=== PATIENT | male | born 1965 | race Caucasian/White ===

== ENCOUNTER 2024-07-22 07:03 | Day surgery (SDC) | payer OTHER, SELFPAY ==
[2024-07-22] VITALS (8 sets, daily range): BP systolic 118–155; BP diastolic 65–79; PULSE 67–75; RESP 18; TEMP 36.4–37.6; O2SAT 87–95; BMI 40.3
--- NOTE | 2024-07-22 | GASB_PTH ---
PATIENT: PAULETTE GALLO LOC: [facility] U#:[id number] AGE/SX: 59/M ROOM: RE07/22/[address]: Dr. Masha Morse MD : 1965 BED: DIS: 07/22/2024 SPEC #: [id number] RECD: 07/22/24 13:30 STATUS: BEN NANCY #: [id number] KEELY: 07/22/24 00:[address]: Masha Morse DEPT: SURGICAL PATHOLOGY RECD BY: Tariq Baig ENTERED: 07/23/24 09:37 SP TYPE: Gastric Bx OTHR DR: [facility] Tissues: A - Gastric mucous membrane B - Gastric mucous membrane C - Descending colon D - Sigmoid colon biopsy E - Sigmoid colon biopsy Procedures: Surgery Specimen Level IV HEADER OPERATION: Colonoscopy with biopsy and polypectomy and ink marking PRE-OP DIAGNOSIS: Tubuovillous adenoma of colon, acid reflux, family history of colon cancer in father TISSUE SUBMITTED: A- Gastric body biopsy abnormal mucosa, B- Hepatic flexure polyp, C- Descending colon polyp biopsy, D- Sigmoid polyps x2, E- Sigmoid polyp top 35cm polyp MICROSCOPIC DIAGNOSIS A. Gastric body, biopsy: Mild chronic gastritis. See comment. B. Colonic polyp at hepatic flexure, biopsy: Hyperplastic polyp. C. Descending colon polyp, biopsy: Hyperplastic polyp. D. Sigmoid polyps, biopsy: Fragments of tubular adenoma. E. Sigmoid polyp at 35.0cm, biopsy: Micro adenocarcinoma associated with tubular adenoma. See comment. 07/24/2024 COMMENT A. The results of immunohistochemistry for Helicobacter pylori will be reported separately ([id number]). E. The focus of adenocarcinoma measures 4.0mm in greatest dimension and is submucosal in location. Immunohistochemistry ([id number]) supports the above diagnosis. Clinical correlation is suggested. Case has been reviewed in consultation with Dr. Sterling who concurs with the above diagnosis. IDC:CODY MICROSCOPIC DESCRIPTION Slides are reviewed. GROSS DESCRIPTION A. Received in fixative is one container labeled with the patient's name and designated Gastric body. The specimen consists of one irregular fragment of light wynn soft tissue that measures 0.5 x 0.5 x 0.1 cm. The specimen is totally submitted in one cassette. B. Received in fixative is one container labeled with the patient's name and designated Hepatic flexure polyp. The specimen consists of multiple irregular fragments of light wynn soft tissue that in aggregate measure 0.3 x 0.2 x 0.1 cm. The specimen is totally submitted in one cassette. C. Received in fixative is one container labeled with the patient's name and designated Descending colon polyp. The specimen consists of one irregular fragment of light wynn soft tissue that measures 0.6 x 0.5 x 0.2 cm. The specimen is totally submitted in one cassette. D. Received in fixative is one container labeled with the patient's name and designated Sigmoid polyps x2. The specimen consists of multiple irregular fragments of light wynn soft tissue that in aggregate measure 2.0 x 1.0 x 0.3 cm. The specimen is totally submitted in one cassette. E. Received in fixative is one container labeled with the patient's name and designated Sigmoid polyp. The specimen consists of multiple irregular fragments of light wynn soft tissue that range in size from 0.2 to 1.5cm. The largest fragment is sectioned and totally submitted along with the smaller fragments in one cassette. 07/23/2024 TC:0 [facility]:[id number] ADDENDUM ADDENDUM 07/25/2024 14:31 ADDENDUM 07/25/2024 14:31 ADDENDUM 07/25/2024 14:31 ADDENDUM 07/25/2024 14:31 ADDENDUM 07/25/2024 14:[address] Morse at 1:25pm on 07/24/2024.
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
[2024-07-22] MEDS: Lactated Ringers 1,000 ML 15 ML IV (07:34)
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
--- NOTE | 2024-07-22 08:30 | IMM_PTH ---
PATIENT: PAULETTE GALLO LOC: [facility] U#:[id number] AGE/SX: 59/M ROOM: RE07/22/[address]: Dr. Masha Morse MD : 1965 BED: DIS: 07/22/2024 SPEC #: [id number] RECD: 07/23/24 11:26 STATUS: BEN REKate #: [id number] KEELY: 07/22/24 08:[address]: Masha Morse DEPT: IMMUNOHISTOCHEMISTRY RECD BY: Charles Parra ENTERED: 07/23/24 11:26 SP TYPE: IMMUNO OTHR DR: [facility] Tissues: A - Gastric mucous membrane E - Sigmoid colon biopsy Procedures: H Pylori (initial) SMA (add) CD31 (add) DESMIN (add) SMM (add) FACTOR VIII (add) PHYSICIAN & INSTITUTION [place] [address] SPECIMEN INFORMATION: Tissue Source: A- Gastric body biopsy, E- Sigmoid polyp Clinical Info: Tubulovillous adenoma of colon, family history of colon cancer in father Specimen Number: [id number] Jeet Lindo CPT code: 49702g7,68088i66 METHODOLOGY: Deparaffinized sections of prefer/formalin-fixed tissue or PAP/DQ stained slides are incubated with monoclonal/polyclonal antibodies/oligonucleotide probes. Localization is made via biotin free immunoperoxidase method. Appropriate controls are performed and reacted as expected. Results on target cell population are indicated in the following table: RESULTS: ANTIBODY / CLONE RESULT Block A H Pylori (polyclonal) negative Block E Her-2neu (CB11) negative MOC-31 (4561) positive MLH-1 (M1) positive MSH2 (25D12) positive MSH6 (44) positive PMS2 (YBR0646) positive Ki-67 (30-9) positive, 40% P53 (DO-7) positive, indeterminate pattern Actin (1A4) positive, background tissue Myosin (simms1) positive, background tissue Desmin (CE-R-11) positive, background tissue CD31 (REJI/70A) negative Factor VIII (R Ag) negative These tests were developed and their performance characteristics determined by [facility]. They may not have been cleared or approved by the U.S. Food and Drug Administration. The FDA has determined that such clearance or approval is not necessary. The above immunohistochemical/dualISH markers are ordered and reviewed by the Pathologist. INTERPRETATION: A. Gastric body, biopsy: Negative for Helicobacter pylori organisms. E. Sigmoid colon polyp, biopsy: Minute focus of adenocarcinoma. No evidence of vascular invasion. Result of Microsatellite Instability Study: Negative (no loss of mismatch protein; no microsatellite instability detected). AM.mr 07/25/2024
--- NOTE | 2024-07-22 10:39 | OP.EGD_ITS ---
Patient Name: Rafi Gross Procedure Date: 07/22/2024 9:18 AM Date of : 1965 Age: 59 Procedure: Upper GI endoscopy Indications: Heartburn Providers: Masha Morse MD Patient Profile: This is a 59 year old male. Complications: No immediate complications. Procedure: Pre-Anesthesia Assessment: - Prior to the procedure, a History and Physical was performed, and patient medications and allergies were reviewed. The patient's tolerance of previous anesthesia was also reviewed. The risks and benefits of the procedure and the sedation options and risks were discussed with the patient. All questions were answered, and informed consent was obtained. Prior Anticoagulants: The patient has taken no anticoagulant or antiplatelet agents. ASA Grade Assessment: Per anesthesia. After reviewing the risks and benefits, the patient was deemed in satisfactory condition to undergo the procedure. After obtaining informed consent, the endoscope was passed under direct vision. Throughout the procedure, the patient's blood pressure, pulse, and oxygen saturations were monitored continuously. The colonoscope was introduced through the mouth, and advanced to the second part of duodenum. The upper GI endoscopy was accomplished without difficulty. The patient tolerated the procedure well. Scope In: 9:20:43 AM Scope Out: 9:28:47 AM Total Procedure Duration Time 0 hours 8 minutes 4 seconds Findings: The Z-line was irregular. Biopsies were taken with a cold forceps for histology. Localized moderate mucosal changes characterized by discoloration were found in the gastric body. Biopsies were taken with a cold forceps for histology. Biopsies were taken with a cold forceps for Helicobacter pylori cultures. The examined duodenum was normal. The cardia and gastric fundus were normal on retroflexion. Impression: - Z-line irregular. Biopsied. - Discolored mucosa in the gastric body. Biopsied. - Normal examined duodenum. Recommendation: - Discharge patient to home. - Resume previous diet. - Continue present medications. - Await pathology results. Procedure Code(s): --- Professional --- 91037, Esophagogastroduodenoscopy, flexible, transoral; with biopsy, single or multiple Diagnosis Code(s): --- Professional --- K22.89, Other specified disease of esophagus K31.89, Other diseases of stomach and duodenum R12, Heartburn CPT copyright 2021 [employer]. All rights reserved. The codes documented in this report are preliminary and upon spike machine operator review may be revised to meet current compliance requirements. MD Masha Carranza MD 07/22/2024 10:38:53 AM This report has been signed electronically. Number of Addenda: 0 Note Initiated On: 07/22/2024 9:18 AM
--- NOTE | 2024-07-22 10:40 | OP.CCLET_ITS ---
07/22/2024 [facility] Re : Upper GI endoscopy procedure for [facility] This procedure was performed on Monday, July 22, 2024. My impressions and recommendations are as follows: Impressions : - Z-line irregular. Biopsied. - Discolored mucosa in the gastric body. Biopsied. - Normal examined duodenum. Recommendations : - Discharge patient to home. - Resume previous diet. - Continue present medications. - Await pathology results. My findings are described in the full procedure note, which is enclosed. If I can be of further assistance, please feel free to contact me at Doctor phone number(s): , Work: . Sincerely, MD Masha Carranza MD 07/22/2024 10:38:53 AM This report has been signed electronically.
--- NOTE | 2024-07-22 10:47 | PCM.POST.ANE ---
Anesthesia: Postop Eval I Current Vital Signs Temperature: 99.6 F Pulse Rate: 70 Blood Pressure: 140/70 Respiratory Rate: 18 Pulse Ox: 90 Oxygen Delivery Method: Room Air Assessment Airway patent: Yes Spontaneous unlabored respirations: Yes Mental status: Awake and Calm nausea: No Vomiting: No Anesthesia Complication: Yes Anesthesia Complication Comment:: O2 desat d/t VETO, 100mm OA placed, removed before PACU Fluid Hydration Crystalloid volume administer (ml): 800 Total IV fluid infused: 800 Progress Note Anesthesia document: Postop Eval 1 completed: Yes
--- NOTE | 2024-07-22 10:48 | OP.CCLET_ITS ---
07/22/2024 [facility] Re : Colonoscopy procedure for [facility] This procedure was performed on Monday, July 22, 2024. My impressions and recommendations are as follows: Impressions : - One less than 5 mm polyp at the hepatic flexure, removed with a hot snare. Resected and retrieved. - One less than 5 mm polyp in the descending colon, removed with a hot snare. Resected and retrieved. - One 22 mm polyp in the sigmoid colon at 35 cm proximal to the anus, removed piecemeal using a hot snare. Resected and retrieved. Injected. - One 5 mm polyp at the hepatic flexure. - One less than 5 mm polyp in the descending colon, removed with a hot snare. Resected and retrieved. - The examination was otherwise normal. - Diverticulosis in the sigmoid colon. Recommendations : - Discharge patient to home. - Resume previous diet. - Continue present medications. - Await pathology results. - Repeat colonoscopy at appointment to be scheduled incomplete polyp resection. - Refer to a senior water resources engineer at appointment to be scheduled. My findings are described in the full procedure note, which is enclosed. If I can be of further assistance, please feel free to contact me at Doctor phone number(s): , Work: . Sincerely, MD Masha Carranza MD 07/22/2024 10:47:57 AM This report has been signed electronically.
--- NOTE | 2024-07-22 10:48 | OP.COLON_ITS ---
Patient Name: Rafi Gross Procedure Date: 07/22/2024 9:28 AM Date of : 1965 Age: 59 Procedure: Colonoscopy Indications: High risk colon cancer surveillance: Personal history of adenoma with villous component Providers: Masha Morse MD Medicines: Monitored Anesthesia Care Patient Profile: Last Colonoscopy: 2017. This is a 59 year old male. Complications: No immediate complications. Procedure: Pre-Anesthesia Assessment: - Prior to the procedure, a History and Physical was performed, and patient medications and allergies were reviewed. The patient's tolerance of previous anesthesia was also reviewed. The risks and benefits of the procedure and the sedation options and risks were discussed with the patient. All questions were answered, and informed consent was obtained. Prior Anticoagulants: The patient has taken no anticoagulant or antiplatelet agents. ASA Grade Assessment: Per anesthesia. After reviewing the risks and benefits, the patient was deemed in satisfactory condition to undergo the procedure. After I obtained informed consent, the scope was passed under direct vision. Throughout the procedure, the patient's blood pressure, pulse, and oxygen saturations were monitored continuously. The colonoscope was introduced through the anus and advanced to the cecum, identified by the ileocecal valve unable to intubate cecum. The colonoscopy was technically difficult and complex due to Belly breathing improved after nasal trumpet. The patient tolerated the procedure well. The quality of the bowel preparation was good. Scope In: 9:31:25 AM Scope Withdrawal Time 0 hours 35 minutes 42 seconds Scope Out: 10:30:15 AM Total Procedure Duration Time 0 hours 58 minutes 50 seconds Findings: A less than 5 mm polyp was found in the hepatic flexure. The polyp was semi-pedunculated. The polyp was removed with a hot snare. Resection and retrieval were complete. A less than 5 mm polyp was found in the descending colon. The polyp was semi-pedunculated. The polyp was removed with a hot snare. Resection and retrieval were complete. A 22 mm polyp was found in the sigmoid colon at 35 cm proximal to the anus. The polyp was semi-pedunculated. The polyp was removed with a piecemeal technique using a hot snare. Resection and retrieval were complete. Area was successfully injected with [Volume] Ana Laura ink for tattooing. A 5 mm polyp was found in the hepatic flexure. The polyp was sessile. Polyp resection was incomplete due to the polypectomy being technically difficult and complex. A less than 5 mm polyp was found in the descending colon. The polyp was semi-pedunculated. The polyp was removed with a hot snare. Resection and retrieval were complete. The exam was otherwise without abnormality. Multiple small-mouthed diverticula were found in the sigmoid colon. Impression: - One less than 5 mm polyp at the hepatic flexure, removed with a hot snare. Resected and retrieved. - One less than 5 mm polyp in the descending colon, removed with a hot snare. Resected and retrieved. - One 22 mm polyp in the sigmoid colon at 35 cm proximal to the anus, removed piecemeal using a hot snare. Resected and retrieved. Injected. - One 5 mm polyp at the hepatic flexure. - One less than 5 mm polyp in the descending colon, removed with a hot snare. Resected and retrieved. - The examination was otherwise normal. - Diverticulosis in the sigmoid colon. Recommendation: - Discharge patient to home. - Resume previous diet. - Continue present medications. - Await pathology results. - Repeat colonoscopy at appointment to be scheduled incomplete polyp resection. - Refer to a dietetics professor at appointment to be scheduled. Procedure Code(s): --- Professional --- 67169, PT, Colonoscopy, flexible; with removal of tumor(s), polyp(s), or other lesion(s) by snare technique 73799, Colonoscopy, flexible; with directed submucosal injection(s), any substance Diagnosis Code(s): --- Professional --- Z86.010, Personal history of colonic polyps D12.5, Benign neoplasm of sigmoid colon D12.3, Benign neoplasm of transverse colon (hepatic flexure or splenic flexure) D12.4, Benign neoplasm of descending colon K57.30, Diverticulosis of large intestine without perforation or abscess without bleeding CPT copyright 2021 [employer]. All rights reserved. The codes documented in this report are preliminary and upon pharmacy intake coordinator review may be revised to meet current compliance requirements. MD Masha Carranza MD 07/22/2024 10:47:57 AM This report has been signed electronically. Number of Addenda: 0 Note Initiated On: 07/22/2024 9:28 AM
--- NOTE | 2024-07-22 11:19 | PCM.POSTANE2 ---
Anesthesia Postop Eval I Sum Postop Eval Completion status Anesthesia document: Postop Eval 1 completed: Yes Anesthesia Postop Eval I Summary Anesthesia Postop Eval I Summary: Anesthesia Postop Eval I: Assessment Summary Airway patent Yes 07/22/24 10:48 [email or web address] Spontaneous unlabored Yes 07/22/24 10:48 [email or web address] respirations Mental status Awake,Calm 07/22/24 10:48 [email or web address] nausea No 07/22/24 10:48 [email or web address] Vomiting No 07/22/24 10:48 [email or web address] Anesthesia Postop Eval I: Fluid Summary Crystalloid volume administer 800 07/22/24 10:48 [email or web address] (ml) Colloids volume administered ( ml) Blood Product volume administered (ml) Total IV fluid infused 800 07/22/24 10:48 [email or web address] Anesthesia Postop Eval I: Summary Notes Anesthesia Complication Yes 07/22/24 10:48 [email or web address] Anesthesia Complication O2 desat d/t VETO, 07/22/24 10:48 [email or web address] Comment: 100mm OA placed, removed before PACU Post-operative progress note Anesthesia: Postop Eval II Evaluation Mental status: Awake Pain Level: 0 nausea: No Vomiting: No
== END 2024-07-22 11:24 | disposition home or self-care (01) ==
LOC: EN 07:07 → AC 07:11
PROVIDERS: Visit Provider Surgery
PROC: 0DJD8ZZ Inspection of Lower Intestinal Tract, Via Natural or Artificial Opening Endoscopic (ICD-10-PCS; CPT 45378; principal; 2024-07-22 08:25)
DX: D12.5 Benign neoplasm of sigmoid colon (principal); K63.5 Polyp of colon; K21.9 Gastro-esophageal reflux disease without esophagitis; K29.70 Gastritis, unspecified, without bleeding; K57.30 Diverticulosis of large intestine without perforation or abscess without bleeding; I10 Essential (primary) hypertension; F41.9 Anxiety disorder, unspecified; F32.9 Major depressive disorder, single episode, unspecified; E78.00 Pure hypercholesterolemia, unspecified; G47.30 Sleep apnea, unspecified; F17.210 Nicotine dependence, cigarettes, uncomplicated; Z80.0 Family history of malignant neoplasm of digestive organs; Z86.010 Personal history of colon polyps; Z79.899 Other long term (current) drug therapy
CPT/HCPCS: 45385; 45381; 43239; 88305; 88341; 88342; J7120; A4648; J2405